=== PATIENT | male | born 1935 | race Caucasian/White ===

== ENCOUNTER 2016-11-27 13:35 | Inpatient (IN) | payer MEDICARE ==
[~2016-11-27] VITALS: Ht 172.7 cm; Wt 62.0 kg
[2016-11-27] MEDS ORDERED: SODIUM CHLORIDE FLUSH 10ML SYR IVF ONE ×2 (14:00→19:00)
[2016-11-27] MEDS ORDERED: SODIUM CHLORIDE 0.9% 1,000ML IVBOLUS ONE (14:00)
[2016-11-27 14:18] LABS: HEMATOCRIT 40.4 % (39.2-51.8); HEMOGLOBIN 13.2 g/dL (13.7-18.0); WHITE BLOOD COUNT 6.5 x10^3/uL (3.4-10)
[2016-11-27] MEDS ORDERED: PLEASE ENTER ALLERGIES MC SCH ×2 (14:30)
[2016-11-27 14:31] LABS: ASPARTATE AMINO TRANSFERASE 39 U/L (15-37); BLOOD UREA NITROGEN 10 mg/dL (7-18)
[2016-11-27] MEDS ORDERED: SERT100T5 PO (14:49)
[2016-11-27] MEDS ORDERED: DICY20TA3 PO (14:49)
[2016-11-27] MEDS ORDERED: ENTA200T22 PO (14:49)
[2016-11-27] MEDS ORDERED: CARB1TAB25 PO (14:49)
[2016-11-27] MEDS ORDERED: CARB1TAB44 PO (14:49)
[2016-11-27] MEDS ORDERED: BENZTROPINE 1 MG/ML, 2 ML IM ONE (15:00)
[2016-11-27] MEDS ORDERED: POTASSIUM CHLORIDE 40 MEQ in SODIUM CHLORIDE 0.9% 500 ML IV ONE (19:00)
[2016-11-27] MEDS ORDERED: ENALAPRILAT 1.25 MG/ML, 2ML IVPush PRN (19:00)
[2016-11-27] MEDS ORDERED: morphine SULFATE 10 MG/ML, 1ML IVPush PRN (19:00)
[2016-11-27] MEDS ORDERED: BISACODYL 10 MG SUPP PR PRN (19:00)
[2016-11-27] MEDS ORDERED: ACETAMINOPHEN 325 MG TABLET PO PRN (19:00)
[2016-11-27] MEDS ORDERED: OXYcodone IR 5MG TABLET PO PRN (19:00)
[2016-11-27] MEDS ORDERED: hydrALAzine 20 MG/ML, 1ML IVPush PRN (19:00)
[2016-11-27] MEDS ORDERED: POLYETHYLENE GLYCOL 17 GM PACKET PO PRN (19:00)
[2016-11-27] MEDS ORDERED: ONDANSETRON 2MG/ML, 2ML IVPush PRN (19:00)
[2016-11-27 19:34] VITALS: BP 127/60
[2016-11-27 19:58] LABS: C-REACTIVE PROTEIN, QUANT 2.3 mg/dL (0.02-0.49)
[2016-11-27] MEDS: CARBIDOPA/LEVODOPA CR 50 MG/200 MG TABLET PO SCH (21:00)
[2016-11-27] MEDS: SODIUM CHLORIDE 0.9% 1,000 ML IV SCH (21:55)
[2016-11-27] MEDS: HEPARIN 5,000 UNITS/ML, 1ML SQ SCH (21:56)
[2016-11-27] MEDS: SERTRALINE 100MG TABLET PO SCH (21:56)
[2016-11-27] MEDS: DICYCLOMINE 20 MG TABLET PO SCH (21:56)
[2016-11-27 22:00] VITALS: BP 127/60
[2016-11-28 05:23] VITALS: BP 120/70
[2016-11-28] MEDS: HEPARIN 5,000 UNITS/ML, 1ML SQ SCH ×2 (05:38→16:25)
[2016-11-28 06:03] LABS: HEMATOCRIT 39.9 % (39.2-51.8); HEMOGLOBIN 12.9 g/dL (13.7-18.0); WHITE BLOOD COUNT 5.2 x10^3/uL (3.4-10)
[2016-11-28 06:38] LABS: ASPARTATE AMINO TRANSFERASE 28 U/L (15-37); BLOOD UREA NITROGEN 8 mg/dL (7-18)
[2016-11-28 07:38] VITALS: BP 118/63
[2016-11-28] MEDS ORDERED: ERGOCALCIFEROL 50,000 UNIT CAPSULE PO SCH (08:30)
[2016-11-28] MEDS: SODIUM CHLORIDE 0.9% 1,000 ML IV SCH ×2 (10:07→16:26)
[2016-11-28] MEDS: DICYCLOMINE 20 MG TABLET PO SCH ×2 (10:07→20:35)
[2016-11-28] MEDS: CARBIDOPA/LEVODOPA 25 MG/250 MG TABLET PO SCH (10:08)
[2016-11-28] MEDS: SENNA/DOCUSATE TABLET PO SCH (10:08)
[2016-11-28] MEDS: ENTACAPONE 200 MG TABLET PO SCH (10:08)
[2016-11-28] MEDS: CARBIDOPA/LEVODOPA CR 50 MG/200 MG TABLET PO SCH ×3 (10:08→20:35)
[2016-11-28] MEDS ORDERED: FLU VACC QS2017-18 (36MOS+) UP/PF 0.5 ML IM-VACC ONE (10:30)
[2016-11-28 13:54] VITALS: BP 132/75
[2016-11-28 19:51] VITALS: BP 126/80
[2016-11-28] MEDS: SERTRALINE 100MG TABLET PO SCH (20:35)
[2016-11-29 00:39] VITALS: BP 126/73
[2016-11-29] MEDS: HEPARIN 5,000 UNITS/ML, 1ML SQ SCH ×3 (00:46→15:15)
[2016-11-29 07:05] VITALS: BP 138/76
[2016-11-29] MEDS: CARBIDOPA/LEVODOPA 25 MG/250 MG TABLET PO SCH (08:11)
[2016-11-29] MEDS: CARBIDOPA/LEVODOPA CR 50 MG/200 MG TABLET PO SCH ×3 (08:11→21:24)
[2016-11-29] MEDS: ENTACAPONE 200 MG TABLET PO SCH (08:11)
[2016-11-29] MEDS: SENNA/DOCUSATE TABLET PO SCH (08:11)
[2016-11-29] MEDS: DICYCLOMINE 20 MG TABLET PO SCH ×2 (08:11→21:24)
[2016-11-29] MEDS ORDERED: ERGOCALCIFEROL 50,000 UNIT CAPSULE PO SCH (12:30)
[2016-11-29 15:39] VITALS: BP 110/61
[2016-11-29 19:20] VITALS: BP 134/84
[2016-11-29] MEDS ORDERED: ENALAPRILAT 1.25 MG/ML, 2ML IVPush PRN (20:00)
[2016-11-29] MEDS ORDERED: ONDANSETRON 2MG/ML, 2ML IVPush PRN (20:00)
[2016-11-29] MEDS ORDERED: morphine SULFATE 10 MG/ML, 1ML IVPush PRN (20:00)
[2016-11-29] MEDS ORDERED: POLYETHYLENE GLYCOL 17 GM PACKET PO PRN (20:00)
[2016-11-29] MEDS ORDERED: BISACODYL 10 MG SUPP PR PRN (20:00)
[2016-11-29] MEDS ORDERED: hydrALAzine 20 MG/ML, 1ML IVPush PRN (20:00)
[2016-11-29] MEDS ORDERED: ACETAMINOPHEN 325 MG TABLET PO PRN (20:00)
[2016-11-29] MEDS: SERTRALINE 100MG TABLET PO SCH (21:24)
[2016-11-30] MEDS: HEPARIN 5,000 UNITS/ML, 1ML SQ SCH ×3 (00:22→16:52)
[2016-11-30 02:00] VITALS: BP 134/74
[2016-11-30 07:55] VITALS: BP 125/80
[2016-11-30] MEDS: SENNA/DOCUSATE TABLET PO SCH (09:01)
[2016-11-30] MEDS: ENTACAPONE 200 MG TABLET PO SCH (09:01)
[2016-11-30] MEDS: CARBIDOPA/LEVODOPA 25 MG/250 MG TABLET PO SCH (09:01)
[2016-11-30] MEDS: DICYCLOMINE 20 MG TABLET PO SCH ×2 (09:01→19:39)
[2016-11-30] MEDS: CARBIDOPA/LEVODOPA CR 50 MG/200 MG TABLET PO SCH ×3 (09:01→19:39)
[2016-11-30 14:55] VITALS: BP 113/66
[2016-11-30] MEDS: SERTRALINE 100MG TABLET PO SCH (19:39)
[2016-11-30 19:55] VITALS: BP 141/82
[2016-12-01] MEDS: HEPARIN 5,000 UNITS/ML, 1ML SQ SCH ×3 (00:13→15:38)
[2016-12-01 01:25] VITALS: BP 142/77
[2016-12-01 07:26] VITALS: BP 137/80
[2016-12-01] MEDS: SENNA/DOCUSATE TABLET PO SCH (09:00)
[2016-12-01] MEDS: ENTACAPONE 200 MG TABLET PO SCH (09:10)
[2016-12-01] MEDS: CARBIDOPA/LEVODOPA 25 MG/250 MG TABLET PO SCH (09:10)
[2016-12-01] MEDS: CARBIDOPA/LEVODOPA CR 50 MG/200 MG TABLET PO SCH ×3 (09:10→20:03)
[2016-12-01] MEDS: DICYCLOMINE 20 MG TABLET PO SCH ×2 (09:10→20:03)
[2016-12-01 14:57] VITALS: BP 116/73
[2016-12-01] MEDS: OXYcodone IR 5MG TABLET PO PRN (15:38)
[2016-12-01 19:20] VITALS: BP 118/75
[2016-12-01] MEDS: SERTRALINE 100MG TABLET PO SCH (20:03)
[2016-12-02] MEDS: HEPARIN 5,000 UNITS/ML, 1ML SQ SCH ×3 (00:40→15:58)
[2016-12-02] MEDS: OXYcodone IR 5MG TABLET PO PRN ×2 (00:40→15:19)
[2016-12-02 01:30] VITALS: BP 123/69
[2016-12-02] MEDS: SENNA/DOCUSATE TABLET PO SCH (08:23)
[2016-12-02] MEDS: CARBIDOPA/LEVODOPA CR 50 MG/200 MG TABLET PO SCH ×2 (08:24→15:20)
[2016-12-02] MEDS: CARBIDOPA/LEVODOPA 25 MG/250 MG TABLET PO SCH (08:24)
[2016-12-02] MEDS: ENTACAPONE 200 MG TABLET PO SCH (08:24)
[2016-12-02] MEDS: DICYCLOMINE 20 MG TABLET PO SCH (08:24)
[2016-12-02 09:36] VITALS: BP 118/66
[2016-12-02] MEDS ORDERED: ERGO500017 PO (10:22)
[2016-12-02] MEDS ORDERED: POLY17PO5 PO (10:22)
[2016-12-02 14:27] VITALS: BP 115/54
== END 2016-12-02 16:44 | disposition home or self-care (01) | DRG 56 ==
LOC: ED 17:41 → EDIP 17:42 → ED 18:09 → 3NE 19:23
PROVIDERS: ADMIT Hospitalist; ATTEND Hospitalist
DX: G20 Parkinson's disease (principal); E43 Unspecified severe protein-calorie malnutrition; E86.0 Dehydration; F32.9 Major depressive disorder, single episode, unspecified; E87.6 Hypokalemia; Z68.20 Body mass index [BMI] 20.0-20.9, adult; E55.9 Vitamin D deficiency, unspecified; F17.290 Nicotine dependence, other tobacco product, uncomplicated; Z74.01 Bed confinement status
CPT/HCPCS: 36415; 71010; 80053; 80061; 81003; 82306; 82550; 82607; 83036; 83735; 84439; 84443; 85025; 85651; 86140; 93005; 96361; 96372; J0515; J1644; J3480; 92523-GN; J7030; J7040

== ENCOUNTER 2016-12-31 11:11 | Inpatient (IN) | payer MEDICARE ==
[~2016-12-31] VITALS: Ht 170.2 cm; Wt 48.2 kg
[~2016-12-31 11:11] MED LIST: CARB1TAB25 PO; CARB1TAB44 PO; DICY20TA3 PO; ENTA200T22 PO; ERGO500017 PO; POLY17PO5 PO; SERT100T5 PO
[2016-12-31] MEDS ORDERED: SODIUM CHLORIDE 0.9% 1,000 ML IV ONE (11:35)
[2016-12-31] MEDS ORDERED: FILTER 0.22 MICRON IV ONE (12:00)
[2016-12-31] MEDS ORDERED: SODIUM CHLORIDE FLUSH 10ML SYR IVF ONE (12:00)
[2016-12-31] MEDS ORDERED: AMIODARONE 150 MG in DEXTROSE 5% 100 ML IV ONE (12:00)
[2016-12-31] MEDS ORDERED: ETOMIDATE 40 MG/20 ML ONE (12:00)
[2016-12-31] MEDS ORDERED: SODIUM CHLORIDE 0.9% 1,000ML IVBOLUS ONE (12:00)
[2016-12-31] MEDS ORDERED: VECURONIUM 10 MG ONE (12:00)
[2016-12-31] MEDS ORDERED: SUCCINYLCHOLINE 20 MG/ML, 10ML ONE (12:00)
[2016-12-31] MEDS ORDERED: PROPOFOL 10 MG/ML, 100ML IV ONE (12:00)
[2016-12-31 12:27] LABS: HEMATOCRIT 47.9 % (39.2-51.8); HEMOGLOBIN 15.7 g/dL (13.7-18.0); WHITE BLOOD COUNT 17.8 x10^3/uL (3.4-10)
[2016-12-31 12:39] LABS: ASPARTATE AMINO TRANSFERASE 185 U/L (15-37); BLOOD UREA NITROGEN 63 mg/dL (7-18)
[2016-12-31 12:40] LABS: IS PT STATUS REG ER OR PRE ER? YES
[2016-12-31] MEDS ORDERED: ASPIRIN 81 MG TABLET CHEW PO ONE (13:00)
[2016-12-31] MEDS ORDERED: ASPIRIN 81 MG TABLET CHEW ONE (13:03)
[2016-12-31] MEDS ORDERED: ACETAMINOPHEN 325 MG TABLET PO PRN (15:00)
[2016-12-31] MEDS ORDERED: BISACODYL 10 MG SUPP PR PRN (15:00)
[2016-12-31] MEDS ORDERED: LABETALOL 5MG/ML, 20ML IVPush PRN (15:00)
[2016-12-31] MEDS ORDERED: DOCUSATE 100 MG CAPSULE PO PRN (15:00)
[2016-12-31] MEDS ORDERED: ONDANSETRON ODT 4 MG PO PRN (15:00)
[2016-12-31] MEDS ORDERED: ONDANSETRON 2MG/ML, 2ML IVPush PRN (15:00)
[2016-12-31] MEDS ORDERED: PROPOFOL 100 ML IV PRN (15:45)
[2016-12-31] MEDS ORDERED: VECURONIUM 10 MG IVPush ONE (16:00)
[2016-12-31] MEDS ORDERED: ETOMIDATE 20 MG/10 ML IV ONE (16:00)
[2016-12-31] MEDS ORDERED: SUCCINYLCHOLINE 20 MG/ML, 10ML IVPush ONE (16:00)
[2016-12-31] MEDS: SODIUM CHLORIDE 0.9% 1,000 ML IV SCH ×2 (16:36→20:58)
[2016-12-31 16:39] LABS: ABG COLLECTION SITE LEFT RADIAL; COLLATERAL CIRCULATION TESTING NORMAL
[2016-12-31] MEDS ORDERED: PHARMACY MAY ADJ FOR RENAL FX MC SCH (17:30)
[2016-12-31] MEDS ORDERED: LIDOCAINE-MPF 1%, 2ML ENDO PRN (17:30)
[2016-12-31] MEDS ORDERED: OMNIPAQUE 350 MG/ML, 100ML BOTTLE ONE (17:58)
[2016-12-31] MEDS: CARBIDOPA/LEVODOPA CR 50 MG/200 MG TABLET PO SCH ×3 (19:50→19:52)
[2016-12-31] MEDS: ERGOCALCIFEROL 50,000 UNIT CAPSULE PO SCH ×2 (20:00→20:58)
[2016-12-31 20:43] LABS: ABG COLLECTION SITE LEFT RADIAL; COLLATERAL CIRCULATION TESTING NORMAL
[2016-12-31 20:50] LABS: IS PT STATUS REG ER OR PRE ER? NO
[2016-12-31] MEDS: SERTRALINE 100MG TABLET PO SCH (20:58)
[2016-12-31] MEDS: LEVETIRACETAM 500 MG in SODIUM CHLORIDE 0.9% 100 ML IV SCH (20:58)
[2016-12-31] MEDS ORDERED: LEVETIRACETAM 100 MG/ML, 5ML IV SCH (21:00)
[2017-01-01] MEDS ORDERED: RACEPINEPHRINE INH 2.25%, 0.5ML ONE (03:52)
[2017-01-01 04:00] VITALS: BP 93/63
[2017-01-01] MEDS: SODIUM CHLORIDE 0.9% 1,000 ML IV SCH (04:37)
[2017-01-01 04:44] LABS: HEMATOCRIT 45.5 % (39.2-51.8); HEMOGLOBIN 15.1 g/dL (13.7-18.0); WHITE BLOOD COUNT 3.9 x10^3/uL (3.4-10)
[2017-01-01 04:54] LABS: ABG COLLECTION SITE LEFT RADIAL; BLOOD UREA NITROGEN 54 mg/dL (7-18)
[2017-01-01 04:55] LABS: COLLATERAL CIRCULATION TESTING NORMAL
[2017-01-01] MEDS ORDERED: VANCOMYCIN PER PHARMACY MC PRN (05:00)
[2017-01-01] MEDS ORDERED: PHARMACY INSTRUCTION MC PRN (05:00)
[2017-01-01 05:02] LABS: IS PT STATUS REG ER OR PRE ER? NO
[2017-01-01] MEDS ORDERED: VANCOMYCIN PMX 1GM/200ML 200 ML IV SCH (05:30)
[2017-01-01] MEDS ORDERED: PHARMACOKINETIC MONITORING MC PRN (05:30)
[2017-01-01] MEDS ORDERED: PHARMACOKINETIC CONSULTATION MC ONE (05:30)
[2017-01-01] MEDS: PIPERACILLIN/TAZO/PMX 3.375GM 50 ML IV SCH ×3 (05:42→17:58)
[2017-01-01 06:03] LABS: GAS LOT CARD-20261
[2017-01-01 06:12] LABS: GAS OBC PASS; GASTRIC OCCULT BLD POSITIVE (NEGATIVE); GASTRIC PH 1 (1-7)
[2017-01-01] MEDS ORDERED: POTASSIUM CHLORIDE 20 MEQ TAB.ER.PRT PO ONE (07:00)
[2017-01-01] MEDS ORDERED: ENOXAPARIN 40 MG/0.4 ML SQ SCH (09:00)
[2017-01-01] MEDS ORDERED: SODIUM CHLORIDE 0.9% 1,000ML IVBOLUS ONE ×2 (09:00→18:00)
[2017-01-01] MEDS: LEVETIRACETAM 500 MG in SODIUM CHLORIDE 0.9% 100 ML IV SCH ×2 (09:26→20:54)
[2017-01-01] MEDS: ENTACAPONE 200 MG TABLET PO SCH (10:40)
[2017-01-01] MEDS: CARBIDOPA/LEVODOPA 25 MG/250 MG TABLET PO SCH (10:40)
[2017-01-01] MEDS: SODIUM CHLORIDE 0.45% 1,000 ML IV SCH ×3 (10:44→21:53)
[2017-01-01] MEDS ORDERED: POTASSIUM CHLORIDE 20 MEQ PACKET PO ONE (11:30)
[2017-01-01] MEDS ORDERED: NOREPINEPHRINE 4 MG in SODIUM CHLORIDE 0.9% 246 ML IV PRN (12:00)
[2017-01-01 17:08] LABS: BLOOD UREA NITROGEN 37 mg/dL (7-18)
[2017-01-01] MEDS: SERTRALINE 100MG TABLET PO SCH (21:53)
[2017-01-01] MEDS: PROPOFOL 100 ML IV PRN (21:53)
[2017-01-02] MEDS: PIPERACILLIN/TAZO/PMX 3.375GM 50 ML IV SCH ×4 (01:02→18:37)
[2017-01-02 04:29] VITALS: BP 113/56
[2017-01-02 04:42] LABS: ABG COLLECTION SITE RIGHT RADIAL; COLLATERAL CIRCULATION TESTING NORMAL
[2017-01-02] MEDS: SODIUM CHLORIDE 0.45% 1,000 ML IV SCH (06:20)
[2017-01-02 06:31] LABS: HEMATOCRIT 39.3 % (39.2-51.8); HEMOGLOBIN 12.9 g/dL (13.7-18.0); WHITE BLOOD COUNT 10.8 x10^3/uL (3.4-10)
[2017-01-02 06:40] LABS: ASPARTATE AMINO TRANSFERASE 74 U/L (15-37); BLOOD UREA NITROGEN 22 mg/dL (7-18)
[2017-01-02 07:02] LABS: DIFF TOTAL CELLS COUNTED 100 CELL DIFF
[2017-01-02 07:06] LABS: VERIFY COUNTS? YES
[2017-01-02 07:07] LABS: ANISOCYTOSIS 1+
[2017-01-02 07:08] LABS: LARGE PLATELETS 1+
[2017-01-02] MEDS ORDERED: POTASSIUM PHOS 4.4 MEQ/ML IV ONE (10:00)
[2017-01-02] MEDS ORDERED: POTASSIUM PHOSPHATE 44 MEQ in SODIUM CHLORIDE 0.9% 500 ML IV ONE (10:30)
[2017-01-02] MEDS: CARBIDOPA/LEVODOPA 25 MG/250 MG TABLET PO SCH (10:45)
[2017-01-02] MEDS: LEVETIRACETAM 500 MG in SODIUM CHLORIDE 0.9% 100 ML IV SCH ×2 (10:45→22:35)
[2017-01-02] MEDS: ENTACAPONE 200 MG TABLET PO SCH (10:45)
[2017-01-02 11:26] LABS: HEMOGLOBIN 12.5 g/dL (13.7-18.0)
[2017-01-02] MEDS: POTASSIUM CHLORIDE 40 MEQ in SODIUM CHLORIDE 0.45% 1,000 ML IV SCH (12:01)
[2017-01-02] MEDS: PROPOFOL 100 ML IV PRN (16:37)
[2017-01-02 16:56] LABS: HEMATOCRIT 34.9 % (39.2-51.8); HEMOGLOBIN 11.5 g/dL (13.7-18.0)
[2017-01-02] MEDS: PANTOPRAZOLE 40 MG IV IVPush SCH (18:57)
[2017-01-02] MEDS: SERTRALINE 100MG TABLET PO SCH (21:31)
[2017-01-02 22:02] LABS: HEMATOCRIT 36.4 % (39.2-51.8); HEMOGLOBIN 11.9 g/dL (13.7-18.0)
[2017-01-03] MEDS: PIPERACILLIN/TAZO/PMX 3.375GM 50 ML IV SCH ×4 (01:10→19:30)
[2017-01-03 04:44] LABS: ABG COLLECTION SITE RIGHT RADIAL; COLLATERAL CIRCULATION TESTING NORMAL
[2017-01-03 04:53] LABS: HEMATOCRIT 35.1 % (39.2-51.8); HEMOGLOBIN 11.6 g/dL (13.7-18.0); WHITE BLOOD COUNT 11.3 x10^3/uL (3.4-10)
[2017-01-03 04:58] VITALS: BP 116/62
[2017-01-03 05:00] LABS: BLOOD UREA NITROGEN 16 mg/dL (7-18)
[2017-01-03] MEDS ORDERED: VANCOMYCIN PMX 1GM/200ML 200 ML IV SCH (05:00)
[2017-01-03 05:03] LABS: ASPARTATE AMINO TRANSFERASE 46 U/L (15-37)
[2017-01-03 05:44] LABS: DIFF TOTAL CELLS COUNTED 100 CELL DIFF
[2017-01-03 05:46] LABS: ANISOCYTOSIS 1+; VERIFY COUNTS? YES
[2017-01-03 05:47] LABS: LARGE PLATELETS 1+
[2017-01-03] MEDS: PANTOPRAZOLE 40 MG IV IVPush SCH ×2 (06:30→19:30)
[2017-01-03] MEDS: ENTACAPONE 200 MG TABLET PO SCH (09:00)
[2017-01-03] MEDS ORDERED: ALBUMIN HUMAN 25% 100 ML IV ONE (09:30)
[2017-01-03] MEDS ORDERED: FUROSEMIDE 20 MG/2 ML IV ONE (09:30)
[2017-01-03] MEDS: CARBIDOPA/LEVODOPA 25 MG/250 MG TABLET PO SCH (09:49)
[2017-01-03] MEDS: LEVETIRACETAM 500 MG in SODIUM CHLORIDE 0.9% 100 ML IV SCH ×2 (10:11→21:58)
[2017-01-03] MEDS ORDERED: POTASSIUM CHLORIDE 20 MEQ TAB.ER.PRT PO ONE ×2 (11:00→15:00)
[2017-01-03] MEDS: THIAMINE 100MG TABLET PO SCH (11:42)
[2017-01-03] MEDS: POTASSIUM CHLORIDE 40 MEQ in SODIUM CHLORIDE 0.45% 1,000 ML IV SCH (12:39)
[2017-01-03] MEDS: HYDROcodone/APAP 5/325 TABLET PO PRN (19:30)
[2017-01-03] MEDS: SERTRALINE 100MG TABLET PO SCH (19:30)
[2017-01-03] MEDS: PROPOFOL 100 ML IV PRN (21:58)
[2017-01-03] MEDS: ALBUMIN HUMAN 25% 100 ML IV SCH (23:45)
[2017-01-04] MEDS: PIPERACILLIN/TAZO/PMX 3.375GM 50 ML IV SCH ×4 (01:00→18:21)
[2017-01-04 04:00] VITALS: BP 99/52
[2017-01-04 04:41] LABS: ABG COLLECTION SITE RIGHT RADIAL; COLLATERAL CIRCULATION TESTING NORMAL
[2017-01-04 04:42] LABS: HEMOGLOBIN 10.3 g/dL (13.7-18.0); WHITE BLOOD COUNT 10.3 x10^3/uL (3.4-10)
[2017-01-04 04:49] LABS: ASPARTATE AMINO TRANSFERASE 26 U/L (15-37); BLOOD UREA NITROGEN 15 mg/dL (7-18)
[2017-01-04 05:50] LABS: DIFF TOTAL CELLS COUNTED 100 CELL DIFF
[2017-01-04 05:53] LABS: ANISOCYTOSIS 1+; VERIFY COUNTS? YES
[2017-01-04 05:55] LABS: LARGE PLATELETS 1+
[2017-01-04] MEDS: PANTOPRAZOLE 40 MG IV IVPush SCH ×2 (06:39→18:21)
[2017-01-04] MEDS: ALBUMIN HUMAN 25% 100 ML IV SCH ×3 (07:41→23:16)
[2017-01-04] MEDS: ENTACAPONE 200 MG TABLET PO SCH (07:46)
[2017-01-04] MEDS ORDERED: MAGNESIUM SULFATE PMX 4GM/100M 100 ML IV ONE (08:30)
[2017-01-04] MEDS: CARBIDOPA/LEVODOPA 25 MG/250 MG TABLET PO SCH (09:04)
[2017-01-04] MEDS: THIAMINE 100MG TABLET PO SCH (09:04)
[2017-01-04] MEDS: LEVETIRACETAM 500 MG in SODIUM CHLORIDE 0.9% 100 ML IV SCH ×2 (10:21→22:11)
[2017-01-04] MEDS: HYDROcodone/APAP 5/325 TABLET PO PRN (20:27)
[2017-01-04] MEDS: SERTRALINE 100MG TABLET PO SCH (20:27)
[2017-01-04] MEDS ORDERED: BISACODYL 10 MG SUPP PR PRN (21:00)
[2017-01-04] MEDS ORDERED: PHARMACY MAY ADJ FOR RENAL FX MC SCH (21:00)
[2017-01-04] MEDS ORDERED: ONDANSETRON 2MG/ML, 2ML IVPush PRN (21:00)
[2017-01-04] MEDS ORDERED: ACETAMINOPHEN 325 MG TABLET PO PRN (21:00)
[2017-01-04] MEDS ORDERED: DOCUSATE 100 MG CAPSULE PO PRN (21:00)
[2017-01-04] MEDS ORDERED: PHARMACY INSTRUCTION MC PRN (21:00)
[2017-01-04] MEDS ORDERED: ONDANSETRON ODT 4 MG PO PRN (21:00)
[2017-01-05] MEDS: PIPERACILLIN/TAZO/PMX 3.375GM 50 ML IV SCH ×2 (00:54→06:28)
[2017-01-05 03:56] VITALS: BP 103/53
[2017-01-05 04:02] LABS: HEMATOCRIT 32.7 % (39.2-51.8); HEMOGLOBIN 10.7 g/dL (13.7-18.0); WHITE BLOOD COUNT 9.3 x10^3/uL (3.4-10)
[2017-01-05 04:09] LABS: ASPARTATE AMINO TRANSFERASE 21 U/L (15-37); BLOOD UREA NITROGEN 15 mg/dL (7-18)
[2017-01-05 04:14] LABS: DIFF TOTAL CELLS COUNTED 100 CELL DIFF
[2017-01-05 04:16] LABS: ANISOCYTOSIS 1+; VERIFY COUNTS? YES
[2017-01-05 04:18] LABS: LARGE PLATELETS 1+
[2017-01-05 04:20] LABS: ABG COLLECTION SITE RIGHT RADIAL; COLLATERAL CIRCULATION TESTING NORMAL
[2017-01-05] MEDS: HYDROcodone/APAP 5/325 TABLET PO PRN (06:28)
[2017-01-05] MEDS: PANTOPRAZOLE 40 MG IV IVPush SCH ×2 (06:28→20:41)
[2017-01-05] MEDS: ENTACAPONE 200 MG TABLET PO SCH (08:38)
[2017-01-05] MEDS: AMPICILLIN/SULBACTAM 3 GM in SODIUM CHLORIDE 0.9% 100 ML IV SCH ×3 (08:44→20:47)
[2017-01-05] MEDS: THIAMINE 100MG TABLET PO SCH (08:44)
[2017-01-05] MEDS: CARBIDOPA/LEVODOPA 25 MG/250 MG TABLET PO SCH (08:44)
[2017-01-05] MEDS: ALBUMIN HUMAN 25% 100 ML IV SCH ×3 (09:41→23:55)
[2017-01-05] MEDS: LEVETIRACETAM 500 MG in SODIUM CHLORIDE 0.9% 100 ML IV SCH ×2 (11:02→22:58)
[2017-01-05] MEDS: SERTRALINE 100MG TABLET PO SCH (20:47)
[2017-01-06] MEDS: AMPICILLIN/SULBACTAM 3 GM in SODIUM CHLORIDE 0.9% 100 ML IV SCH ×4 (02:58→20:21)
[2017-01-06 04:00] VITALS: BP 134/72
[2017-01-06 04:29] LABS: ABG COLLECTION SITE LEFT RADIAL; COLLATERAL CIRCULATION TESTING NORMAL
[2017-01-06 04:47] LABS: HEMATOCRIT 33.9 % (39.2-51.8); HEMOGLOBIN 11.1 g/dL (13.7-18.0); WHITE BLOOD COUNT 10.5 x10^3/uL (3.4-10)
[2017-01-06] MEDS: PANTOPRAZOLE 40 MG IV IVPush SCH ×2 (06:35→20:39)
[2017-01-06] MEDS: ALBUMIN HUMAN 25% 100 ML IV SCH ×3 (07:41→23:50)
[2017-01-06] MEDS: THIAMINE 100MG TABLET PO SCH (09:00)
[2017-01-06] MEDS: CARBIDOPA/LEVODOPA 25 MG/250 MG TABLET PO SCH (09:00)
[2017-01-06] MEDS: ENTACAPONE 200 MG TABLET PO SCH (09:01)
[2017-01-06] MEDS: LEVETIRACETAM 500 MG in SODIUM CHLORIDE 0.9% 100 ML IV SCH ×2 (12:50→22:31)
[2017-01-06] MEDS: NYSTATIN 500,000 UNITS/5 ML UDC PO SCH (20:39)
[2017-01-06] MEDS: SERTRALINE 100MG TABLET PO SCH (20:39)
[2017-01-07 04:00] VITALS: BP 130/64
[2017-01-07] MEDS: AMPICILLIN/SULBACTAM 3 GM in SODIUM CHLORIDE 0.9% 100 ML IV SCH ×4 (04:04→21:49)
[2017-01-07] MEDS: NYSTATIN 500,000 UNITS/5 ML UDC PO SCH ×4 (06:04→21:49)
[2017-01-07] MEDS: PANTOPRAZOLE 40 MG IV IVPush SCH ×2 (09:08→21:48)
[2017-01-07] MEDS: ALBUMIN HUMAN 25% 100 ML IV SCH ×3 (09:08→17:15)
[2017-01-07] MEDS: ENTACAPONE 200 MG TABLET PO SCH (09:09)
[2017-01-07] MEDS: CARBIDOPA/LEVODOPA 25 MG/250 MG TABLET PO SCH (09:09)
[2017-01-07] MEDS: THIAMINE 100MG TABLET PO SCH (09:09)
[2017-01-07] MEDS: LEVETIRACETAM 500 MG in SODIUM CHLORIDE 0.9% 100 ML IV SCH ×2 (11:00→23:11)
[2017-01-07 14:15] VITALS: BP 146/78
[2017-01-07 20:20] VITALS: BP 126/74
[2017-01-07] MEDS: SERTRALINE 100MG TABLET PO SCH (23:14)
[2017-01-07] MEDS: ERGOCALCIFEROL 50,000 UNIT CAPSULE PO SCH (23:14)
[2017-01-08] MEDS: ALBUMIN HUMAN 25% 100 ML IV SCH ×3 (01:03→16:00)
[2017-01-08 03:04] VITALS: BP 151/83
[2017-01-08] MEDS: AMPICILLIN/SULBACTAM 3 GM in SODIUM CHLORIDE 0.9% 100 ML IV SCH ×3 (03:26→15:00)
[2017-01-08] MEDS: NYSTATIN 500,000 UNITS/5 ML UDC PO SCH ×3 (06:04→16:00)
[2017-01-08 06:28] LABS: HEMOGLOBIN 11.5 g/dL (13.7-18.0); WHITE BLOOD COUNT 15.5 x10^3/uL (3.4-10)
[2017-01-08 06:34] LABS: BLOOD UREA NITROGEN 13 mg/dL (7-18)
[2017-01-08 08:00] VITALS: BP 144/77
[2017-01-08] MEDS: PANTOPRAZOLE 40 MG IV IVPush SCH (08:00)
[2017-01-08] MEDS: CARBIDOPA/LEVODOPA 25 MG/250 MG TABLET PO SCH (09:00)
[2017-01-08] MEDS: ENTACAPONE 200 MG TABLET PO SCH (09:00)
[2017-01-08] MEDS: POTASSIUM CHLORIDE 20 MEQ PACKET PO SCH ×2 (09:00→21:00)
[2017-01-08] MEDS: THIAMINE 100MG TABLET PO SCH (09:00)
[2017-01-08] MEDS: LEVETIRACETAM 500 MG in SODIUM CHLORIDE 0.9% 100 ML IV SCH (10:30)
[2017-01-08 14:30] VITALS: BP 141/73
[2017-01-08 18:42] VITALS: BP 145/72
[2017-01-08] MEDS: SERTRALINE 100MG TABLET PO SCH (21:00)
[2017-01-08] MEDS ORDERED: POTASSIUM CHLORIDE 30 MEQ in SODIUM CHLORIDE 0.9% 1,000 ML IV SCH (23:30)
[2017-01-09] MEDS: AMPICILLIN/SULBACTAM 3 GM in SODIUM CHLORIDE 0.9% 100 ML IV SCH ×3 (00:26→13:06)
[2017-01-09] MEDS: PANTOPRAZOLE 40 MG IV IVPush SCH ×2 (00:26→08:21)
[2017-01-09] MEDS: NYSTATIN 500,000 UNITS/5 ML UDC PO SCH ×5 (00:34→20:04)
[2017-01-09] MEDS: LEVETIRACETAM 500 MG in SODIUM CHLORIDE 0.9% 100 ML IV SCH ×2 (01:11→10:54)
[2017-01-09 01:29] VITALS: BP 155/80
[2017-01-09] MEDS: ALBUMIN HUMAN 25% 100 ML IV SCH ×2 (01:47→08:21)
[2017-01-09 07:20] VITALS: BP 154/78
[2017-01-09] MEDS: CARBIDOPA/LEVODOPA 25 MG/250 MG TABLET PO SCH (09:00)
[2017-01-09] MEDS: ENTACAPONE 200 MG TABLET PO SCH (09:00)
[2017-01-09] MEDS: THIAMINE 100MG TABLET PO SCH (09:00)
[2017-01-09] MEDS ORDERED: POTASSIUM CHLORIDE 40 MEQ in SODIUM CHLORIDE 0.9% 500 ML IV ONE (11:00)
[2017-01-09 12:40] VITALS: BP 157/75
[2017-01-09 18:46] VITALS: BP 164/79
[2017-01-09] MEDS: SERTRALINE 100MG TABLET PO SCH (20:05)
[2017-01-09 23:23] VITALS: BP 167/81
[2017-01-10 01:15] VITALS: BP 156/83
[2017-01-10 07:55] LABS: HEMATOCRIT 37.4 % (39.2-51.8); HEMOGLOBIN 12.4 g/dL (13.7-18.0); WHITE BLOOD COUNT 12.9 x10^3/uL (3.4-10)
[2017-01-10 08:00] VITALS: BP 164/80
[2017-01-10 08:05] LABS: BLOOD UREA NITROGEN 19 mg/dL (7-18)
[2017-01-10] MEDS: NYSTATIN 500,000 UNITS/5 ML UDC PO SCH ×4 (08:09→21:02)
[2017-01-10] MEDS: ENTACAPONE 200 MG TABLET PO SCH (09:00)
[2017-01-10] MEDS: THIAMINE 100MG TABLET PO SCH (09:00)
[2017-01-10] MEDS: CARBIDOPA/LEVODOPA 25 MG/250 MG TABLET PO SCH (09:00)
[2017-01-10] MEDS: D5%-0.45NACL+KCL 20MEQ 1,000 ML IV SCH (11:10)
[2017-01-10 12:30] VITALS: BP 159/84
[2017-01-10] MEDS: SERTRALINE 100MG TABLET PO SCH (20:52)
[2017-01-10 21:00] VITALS: BP 141/74
[2017-01-11] MEDS: D5%-0.45NACL+KCL 20MEQ 1,000 ML IV SCH ×2 (01:44→12:12)
[2017-01-11 02:33] VITALS: BP 151/75
[2017-01-11] MEDS: NYSTATIN 500,000 UNITS/5 ML UDC PO SCH ×4 (06:36→21:20)
[2017-01-11] MEDS: THIAMINE 100MG TABLET PO SCH (07:41)
[2017-01-11] MEDS: CARBIDOPA/LEVODOPA 25 MG/250 MG TABLET PO SCH (07:41)
[2017-01-11] MEDS: ENTACAPONE 200 MG TABLET PO SCH (07:41)
[2017-01-11 07:55] VITALS: BP 130/69
[2017-01-11 15:00] VITALS: BP 126/69
[2017-01-11] MEDS ORDERED: ONDA4TAB13 PO (15:24)
[2017-01-11] MEDS ORDERED: HYDR-3240 PO (15:24)
[2017-01-11 19:33] VITALS: BP 152/72
[2017-01-11] MEDS: SERTRALINE 100MG TABLET PO SCH (21:21)
[2017-01-12 01:41] VITALS: BP 134/74
[2017-01-12] MEDS: D5%-0.45NACL+KCL 20MEQ 1,000 ML IV SCH ×2 (04:58→13:50)
[2017-01-12] MEDS: NYSTATIN 500,000 UNITS/5 ML UDC PO SCH ×4 (06:46→22:59)
[2017-01-12 06:55] VITALS: BP 128/72
[2017-01-12] MEDS: CARBIDOPA/LEVODOPA 25 MG/250 MG TABLET PO SCH (08:49)
[2017-01-12] MEDS: ENTACAPONE 200 MG TABLET PO SCH (08:49)
[2017-01-12] MEDS: THIAMINE 100MG TABLET PO SCH (08:49)
[2017-01-12] MEDS ORDERED: PNEUMOCOCCAL 23 VACCINE IM-VACC ONE (09:30)
[2017-01-12] MEDS: morphine SULFATE ORAL.CONC 20 MG/ML PO PRN ×3 (10:07→19:33)
[2017-01-12 12:45] VITALS: BP 109/63
[2017-01-12 19:00] VITALS: BP 112/64
[2017-01-12] MEDS: SERTRALINE 100MG TABLET PO SCH (22:59)
[2017-01-13] MEDS: morphine SULFATE ORAL.CONC 20 MG/ML PO PRN ×3 (01:45→11:35)
[2017-01-13 03:26] VITALS: BP 138/67
[2017-01-13 03:27] VITALS: BP 138/67
[2017-01-13] MEDS: D5%-0.45NACL+KCL 20MEQ 1,000 ML IV SCH ×2 (06:28→17:27)
[2017-01-13] MEDS: NYSTATIN 500,000 UNITS/5 ML UDC PO SCH ×5 (06:29→19:51)
[2017-01-13 07:12] VITALS: BP 138/78
[2017-01-13] MEDS: ENTACAPONE 200 MG TABLET PO SCH (08:11)
[2017-01-13] MEDS: CARBIDOPA/LEVODOPA 25 MG/250 MG TABLET PO SCH (08:12)
[2017-01-13] MEDS: THIAMINE 100MG TABLET PO SCH (08:12)
[2017-01-13 13:50] VITALS: BP 113/58
[2017-01-13 20:34] VITALS: BP 109/52
[2017-01-13] MEDS: SERTRALINE 100MG TABLET PO SCH (21:00)
[2017-01-14] MEDS: NYSTATIN 500,000 UNITS/5 ML UDC PO SCH ×3 (06:02→16:00)
[2017-01-14] MEDS: D5%-0.45NACL+KCL 20MEQ 1,000 ML IV SCH (06:02)
[2017-01-14] MEDS: CARBIDOPA/LEVODOPA 25 MG/250 MG TABLET PO SCH (07:49)
[2017-01-14] MEDS: ENTACAPONE 200 MG TABLET PO SCH (07:49)
[2017-01-14] MEDS: THIAMINE 100MG TABLET PO SCH (07:49)
[2017-01-14] MEDS ORDERED: morphine SULFATE ORAL.CONC 20 MG/ML PO PRN (08:30)
[2017-01-14] MEDS ORDERED: LORazepam INTENSOL 2 MG/ML BC PRN (08:30)
== END 2017-01-14 16:05 | DRG 870 ==
LOC: ED 12:20 → EDIP 13:44 → CCU 17:59 → ICU 01-02 14:33 → CCU 01-03 22:24 → 4NOR 01-07 13:56 → 3NW 01-13 15:47 → 3NE 01-14 06:33 → 3NW 01-14 06:33
PROVIDERS: ADMIT Hospitalist; ATTEND Hospitalist
PROC: 0T9B70Z Drainage of Bladder with Drainage Device, Via Natural or Artificial Opening (ICD-10-PCS; principal; 2016-12-31)
PROC: 5A1955Z Respiratory Ventilation, Greater than 96 Consecutive Hours (ICD-10-PCS; 2016-12-31)
PROC: 0BH17EZ Insertion of Endotracheal Airway into Trachea, Via Natural or Artificial Opening (ICD-10-PCS; 2016-12-31)
PROC: 5A09357 Assistance with Respiratory Ventilation, Less than 24 Consecutive Hours, Continuous Positive Airway Pressure (ICD-10-PCS; 2016-12-31)
PROC: 02HV33Z Insertion of Infusion Device into Superior Vena Cava, Percutaneous Approach (ICD-10-PCS; 2017-01-01)
PROC: B548ZZA Ultrasonography of Superior Vena Cava, Guidance (ICD-10-PCS; 2017-01-01)
DX: A41.9 Sepsis, unspecified organism (principal); J96.01 Acute respiratory failure with hypoxia; R57.1 Hypovolemic shock; J69.0 Pneumonitis due to inhalation of food and vomit; E43 Unspecified severe protein-calorie malnutrition; G93.41 Metabolic encephalopathy; N17.9 Acute kidney failure, unspecified; R13.10 Dysphagia, unspecified; S06.5X0A Traumatic subdural hemorrhage without loss of consciousness, initial encounter; Z99.11 Dependence on respirator [ventilator] status; E87.0 Hyperosmolality and hypernatremia; M62.82 Rhabdomyolysis; J98.11 Atelectasis; R47.01 Aphasia; Z68.1 Body mass index [BMI] 19.9 or less, adult; G20 Parkinson's disease; L89.90 Pressure ulcer of unspecified site, unspecified stage; E55.9 Vitamin D deficiency, unspecified; F17.290 Nicotine dependence, other tobacco product, uncomplicated; F32.9 Major depressive disorder, single episode, unspecified; I07.1 Rheumatic tricuspid insufficiency; Z51.5 Encounter for palliative care; B96.20 Unspecified Escherichia coli [E. coli] as the cause of diseases classified elsewhere; W18.39XA Other fall on same level, initial encounter; Z66 Do not resuscitate; Z28.21 Immunization not carried out because of patient refusal; Z86.73 Personal history of transient ischemic attack (TIA), and cerebral infarction without residual deficits; Y93.89 Activity, other specified; Y92.098 Other place in other non-institutional residence as the place of occurrence of the external cause; Y99.8 Other external cause status
CPT/HCPCS: 36415; 36569; 36600; 70450; 71010; 71275; 72125; 74230; 76937; 77001; 80048; 80053; 80202; 81001; 82271; 82550; 82607; 82803; 83735; 84100; 84443; 84478; 84484; 85014; 85018; 85025; 85610; 85730; 87040; 87070; 87077; 87081; 87147; 87186; 87205; 93005; 93306; 93970; 94002; 94003; 94150; 94660; 96361; 96374; 96375; J0295; J1650; J1953; J2543; J2704; J3370; J3480; P9047; Q9967; C1751; C9113; J0330; J1940; J3475; J7030; J7040; J7050